=== PATIENT | male | born 1995 | race Caucasian/White ===

== ENCOUNTER 2020-04-26 15:24 | Emergency (ER) | payer MEDICAID ==
[~2020-04-26] VITALS: Ht 185.4 cm; Wt 78.9 kg
[~2020-04-26 15:24] MED LIST: NOHOMEMEDICATIONS; ONDANSETRON HCL4 M2 PO
[2020-04-26 15:50] LABS: URINE BLOOD NEGATIVE (Negative); URINE CLARITY CLEAR; URINE COLOR YELLOW; URINE GLUCOSE-RANDOM NEGATIVE (Negative); URINE KETONES NEGATIVE (Negative); URINE LEUKOCYTES-REFLEX NEGATIVE (Negative); URINE NITRITE-REFLEX NEGATIVE (Negative); URINE PROTEIN NEGATIVE (Negative); URINE SPECIFIC GRAVITY >= 1.030 (1.005-1.030)
[2020-04-26 15:51] LABS: ICTOTEST (BILI CONFIRMATORY) Negative (Negative); URINE BILIRUBIN 1+ (Negative)
[2020-04-26 15:51] LABS: ABSOLUTE BASOPHILS 0.1 thou/uL (0.0-0.2); ABSOLUTE EOSINOPHILS 0.2 thou/uL (0.0-0.7); ABSOLUTE LYMPHOCYTES 2.8 thou/uL (0.8-5.3); ABSOLUTE MONOCYTES 0.7 thou/uL (0.0-1.2); ABSOLUTE NEUTROPHILS 3.6 thou/uL (1.6-8.1); BASOPHILS 0.8 %; EOSINOPHILS 2.2 %; HEMATOCRIT 43.5 % (42.0-52.0); HEMOGLOBIN 14.7 gm/dL (14.0-18.0); LYMPHOCYTES 38.8 %; MCH 30.1 pg (26.0-34.0); MCHC 33.9 g/dL (28.0-37.0); MONOCYTES 9.1 %; MPV 8.4 fl. (7.2-11.1); NUCLEATED RBCS 0 /100WBC; PLATELET COUNT* 280 thou/uL (150-400); POLYS 49.1 %; RBC 4.89 mil/uL (4.50-6.00); RDW-CV 13.1 % (10.5-14.5); WBC 7.3 thou/uL (4.0-11.0)
[2020-04-26 15:57] LABS: AMP/METHAMP POSITIVE (Negative); BARBITURATES Negative (Negative); BENZODIAZEPINES Negative (Negative); COCAINE Negative (Negative); METHADONE Negative (Negative); OPIATES Negative (Negative); PCP Negative (Negative); THC POSITIVE (Negative)
[2020-04-26] MEDS ORDERED: BUSPIRONE HCL10 MG PO (15:58)
[2020-04-26 15:59] LABS: CALCIUM 8.6 mg/dL (8.5-10.1); CREATININE 1.4 mg/dL (0.6-1.3); POTASSIUM 3.3 mmol/L (3.5-5.1)
[2020-04-26] MEDS ORDERED: INVEGA SUS78 MG/0.5 IM (16:00)
[2020-04-26 16:04] LABS: ALBUMIN 4.3 g/dL (3.4-5.0); TOTAL BILIRUBIN 0.9 mg/dL (<0.1-1.0); TOTAL PROTEIN 7.6 g/dL (6.4-8.2)
[2020-04-26 16:11] LABS: ACETAMINOPHEN < 2 ug/mL (10-30); ALCOHOL < 10 mg/dL (<10); SALICYLATE 3.7 mg/dL (2.8-20.0)
[2020-04-26 21:12] VITALS: BP 111/64
== END 2020-04-26 21:14 | disposition home or self-care (01) ==
LOC: M.ERS 15:24
PROVIDERS: Family Medicine
DX: F15.159 Other stimulant abuse with stimulant-induced psychotic disorder, unspecified (principal); G43.909 Migraine, unspecified, not intractable, without status migrainosus; Z88.5 Allergy status to narcotic agent; Z88.0 Allergy status to penicillin